=== PATIENT | female | born 1985 | race Caucasian/White ===

== ENCOUNTER 2020-08-09 08:15 | Emergency (ER) | payer OTHER, SELFPAY ==
--- NOTE | ~2020-08-09 | XR_ITS ---
EXAMINATION: XR chest 2V DATE: 08/09/2020 08:36 INDICATION: Chest pain TECHNIQUE: PA and lateral views of the chest are obtained. COMPARISON: 04/07/2019 FINDINGS: The lungs are free of acute opacities. There is no pleural effusion or pneumothorax. The ca rdiomediastinal silhouette is normal. There is mild thoracic spondylosis. IMPRESSION: 1. No acute cardiopulmonary abnormality. Reviewed, dictated and finalized at location B.
[2020-08-09 08:20] VITALS: BP 130/90; PULSE 68; RESP 17; TEMP 36.5; O2SAT 100
--- NOTE | 2020-08-09 08:20 | ECG_ITS ---
Measurements Intervals [place] Rate: 61 P: 65 DC: 141 QRS: 36 QRSD: 84 T: 49 QT: 370 QTc: 373 Interpretive Statements SINUS RHYTHM MINIMAL Q WAVES- HIGH LATERAL LEADS BASELINE ARTIFACT- I, II, III, AVR, AVL, AVF, V1-V6 BORDERLINE ECG Electronically Signed On 08-09-2020 8:30:04 CDT by Liborio Bolaños D.O.
[2020-08-09 08:24] VITALS: PULSE 70
--- NOTE | 2020-08-09 08:28 | ED.GENADULT ---
HPI - General Adult General Chief complaint: Chest Pain Stated complaint: chest pain Time Seen by Provider: 08/09/20 08:20 Source: RN notes reviewed History of Present Illness HPI narrative: Patient presents to emergency department from home for chest pain. Patient states symptoms began approximately 30 minutes prior to arrival is located in the midsternal chest with radiation up into the jaw. Described as burning in nature. States that the pain is currently resolved she does report associated shortness of breath when she had the pain she denies any fevers or chills abdominal pain nausea or vomiting. Does report 4 episodes of diarrhea today states she took no previous medications for the symptoms Related Data Home Medications Medication Instructions Recorded Confirmed albuterol sulfate INHALATION 04/07/19 levothyroxine 04/07/19 Allergies Allergy/AdvReac Type Severity Reaction Status Date / Time No Known Allergies Allergy Verified 08/09/20 08:57 Review of Systems Review of Systems: Narrative: Gen.: Denies fevers or chills ENT: Denies congestion Respiratory: Reports shortness of breath with chest pain CV: See HPI GI: Denies abdominal pain nausea, emesis reports diarrhea Musculoskeletal: Denies back pain or muscle pain Neuro: Denies numbness, tingling, weakness or focal weakness Skin: Denies rash Except as documented, all other systems reviewed and negative [facility] Past Medical History Medical History Asthma Bronchitis Closed right ankle fracture GERD (gastroesophageal reflux disease) Gestational diabetes Pneumonia Right carpal tunnel syndrome Surgical History Surgical History (Updated 04/07/19 @ 15:25 by Dahlia Simpson) H/O section H/O tubal ligation History of carpal tunnel surgery of right wrist Family History Family History (Updated 07/02/12 @ 13:29 by DOCTOR UNKNOWN) Other Diabetes mellitus Family history of cardiovascular disease Family history of glaucoma Social History Social History Smoking status: Current every day smoker Alcohol intake: never Exam Narrative: Exam Narrative: APPEARANCE: No acute distress, nontoxic, resting in bed EYES: EOMI HEENT: Normocephalic, atraumatic, OMM RESPIRATORY: No respiratory distress Clear to auscultation bilaterally with no rhonchi wheezing or rales. CARDIOVASCULAR: Regular rate and rhythm without murmurs rubs or gallops. ABDOMINAL: Soft, nontender, nondistended, no rebound or guarding MUSCULOSKELETAl: Moves all extremities. No clubbing, cyanosis or edema. NEURO: Awake and alert. Following commands, speech normal, no focal deficits SKIN:: Warm, dry. No rashes lesions or abrasions PSYCHIATRIC: Normal affect/mood, Course Course Emergency Course: Patient meets PERC rule criteria and no further testing needs to be performed for pulmonary embolism. Patient with no episodes of chest pain in the emergency department Called and discussed with Dr. Godoy For cardiology presentation work-up at this time feels patient may be discharged after 2 - troponins with follow-up in the office Discussed with patient results of workup and diagnosis. Discussed need for follow-up with primary care, proper use of medication, and reasons to return to the emergency department. Patient understands and agrees to current treatment plan Vital Signs Vital signs: Vital Signs Temperature 97.7 F 08/09/20 08:20 Pulse Rate 68 08/09/20 08:20 Respiratory Rate 17 08/09/20 08:20 Blood Pressure 130/90 08/09/20 08:20 Pulse Oximetry 100 08/09/20 08:20 Temperature 97.7 F 08/09/20 08:20 Pulse Rate 66 08/09/20 09:48 Respiratory Rate 22 H 08/09/20 09:48 Blood Pressure 103/68 08/09/20 09:48 Pulse Oximetry 99 08/09/20 09:48 Medical Decision Making MDM Narrative Medical decision making narrative: Patient's EKGs and l
--- NOTE | 2020-08-09 08:31 | PC.NURSE ---
Pt to XY via stretcher at this time.
[2020-08-09 08:37] LABS: Basophils Percent Auto 0.3 % (0.2-1.2); Eosinophils Absolute Auto 0.2 K/mm3 (0-0.3); Eosinophils Percent Auto 2.2 % (0-4.4); Hematocrit 38.3 % (37.0-47.0); Hemoglobin 12.6 g/dL (12.0-15.0); Immature Granulocyte Absolute 0.01 K/mm3 (0.00-0.031); Immature Granulocyte Percent A 0.1 % (0-0.5); Lymphocytes Absolute Auto 1.73 K/mm3 (0.9-3.2); Lymphocytes Percent Auto 23.8 % (18.3-44.2); Mean Corpuscular HGB Conc 32.9 g/dl (32-36); Mean Corpuscular Hemoglobin 28.8 pg (26-34); Mean Corpuscular Volume 87.4 fl (80-100); Mean Platelet Volume 10.5 fl (7.4-10.4); Monocytes Absolute Auto 0.5 K/mm3 (0.1-0.6); Neutrophils Absolute Auto 4.8 K/mm3 (1.3-6.7); Neutrophils Percent Auto 66.6 % (45.5-73.1); Platelet Count Result 235 k/mm3 (150-375); Red Blood Count 4.38 M/mm3 (4.2-5.4); Red Cell Distribution Width 13.6 % (11.5-14.5); White Blood Count 7.3 K/mm3 (4.5-10.0)
[2020-08-09 08:47] LABS: Anion Gap 6 mmol/L (8-16); Blood Urea Nitrogen 20 mg/dL (7-17); Calcium 8.8 mg/dL (8.4-10.2); Carbon Dioxide 23 mmol/L (22-30); Chloride 108 mmol/L (98-107); Estimated Glomerular Filt Rate > 60; Glucose 111 mg/dL (65-105); INR 0.8; Potassium 4.1 mmol/L (3.4-5.0); Prothrombin Time 12.1 Seconds (11.1-14.7); Sodium 137 mmol/L (137-145)
[2020-08-09 08:48] LABS: Partial Thromboplastin Time 24.8 SECONDS (22.3-36.8)
[2020-08-09 08:50] LABS: Alanine Aminotransferase 15 U/L (4-35); Albumin Level 4.2 g/dL (3.5-5.1); Alkaline Phosphatase 80 U/L (38-126); Aspartate Amino Transferase 27 U/L (14-36); Bilirubin,Total < 0.1 mg/dL (0.2-1.3); Lipase 152 U/L (23-300)
[2020-08-09 08:58] LABS: Add Urine Microscopic? NO; Appearance Urine Clear (Clear); Bilirubin Urine Negative (Negative); Blood Urine Negative (Negative); Color Urine Yellow (Yellow); Glucose Urine UA Negative (Negative); Ketones Urine Negative (Negative); Leukocyte Esterase Ur Negative LEU/UL (Negative); Nitrate Urine Negative (Negative); Protein Urine Negative (Negative); Specific Grav Ur 1.026 (1.001-1.035); Urobilinogen Urine Negative mg/dL (<2.0)
[2020-08-09] MEDS: ASPIRIN 81 MG CHEWABLE TABLET 324 MG PO (08:58)
[2020-08-09 08:59] LABS: Troponin I < 0.012 ng/mL (0.000-0.034)
[2020-08-09 09:48] VITALS: BP 103/68; PULSE 66; RESP 22; O2SAT 99
[2020-08-09 12:22] LABS: Troponin I < 0.012 ng/mL (0.000-0.034)
[2020-08-09 12:48] VITALS: BP 106/68; PULSE 67; RESP 15; O2SAT 99
== END 2020-08-09 12:49 | disposition home or self-care (01) ==
PROVIDERS: Emergency Provider Emergency Medicine; PCP Internal Medicine Endocrinology, Diabetes & Metabolism
DX: R07.89 Other chest pain (principal); J45.909 Unspecified asthma, uncomplicated; K21.9 Gastro-esophageal reflux disease without esophagitis
CPT/HCPCS: 36415; 71046; 80048; 80076; 81003; 81025; 83690; 84484; 85025; 85610; 85730; 93005; 99284; A9270

== ENCOUNTER 2022-02-11 11:29 | Emergency (ER) | payer OTHER, SELFPAY ==
--- NOTE | ~2022-02-11 | XR_ITS ---
EXAMINATION: XR chest 2V DATE: 02/11/2022 12:33 INDICATION: 3 weeks of cough TECHNIQUE: PA and lateral views of the chest were obtained. COMPARISON: Chest radiograph dated 08/09/2020 FINDINGS: The lungs remain clear with no focal airspace opacities, pulmonary edema, pleural effusion or pneumot horax. The cardiomediastinal silhouette is normal. Mild thoracic spondylosis. IMPRESSION: 1. No acute cardiopulmonary disease. Reviewed, dictated and finalized at location A.
[2022-02-11 11:42] VITALS: BP 108/79; PULSE 80; RESP 18; TEMP 36.4; O2SAT 100
--- NOTE | 2022-02-11 12:15 | ED.URI ---
HPI - URI/Sore Throat General Chief Complaint: Upper Respiratory Infection Stated Complaint: Coughing, Chest Pain Time Seen by Provider: 02/11/22 12:15 Source: patient, RN notes reviewed and old records reviewed Mode of arrival: ambulatory Limitations: no limitations History of Present Illness HPI Narrative: 36-year-old female presents to the [facility] with complaints of a cough Started as fever, body aches, cough for 2 weeks ago. Reports negative COVID test, taking Claritin. MD elicited complaint: cough Related Data Home Medications Medication Instructions Recorded Confirmed levothyroxine 25 mcg tablet 25 mcg PO DAILY 02/11/22 02/11/22 Allergies Allergy/AdvReac Type Severity Reaction Status Date / Time No Known Allergies Allergy Verified 02/11/22 11:38 Review of Systems Review of Systems: All systems reviewed & are unremarkable except as noted in HPI and below Constitutional: Constitutional: Reports no additional constitutional complaints, Denies chills and Denies fever(s) Eyes: Eyes: Reports no additional eye complaints ENT: Reports as per HPI and Reports nasal congestion Cardiovascular: Cardiovascular: Reports no additional cardiovascular complaints Respiratory: Respiratory: Reports as per HPI, Reports cough and Reports wheezing Gastrointestinal: Gastrointestinal: Reports no additional gastrointestinal complaints Musculoskeletal: Musculoskeletal: Reports no additional musculoskeletal complaints Integumentary/Breasts: Skin/Breast: Reports system reviewed and no additional complaints, except as docu Neurologic: Reports system reviewed and no additional complaints, except as documented Psychiatric: Psychiatric: Reports no additional psychiatric complaints Allergic/Immunologic: Allergic/Immunologic: Reports no additional allergic/immunologic complaints PMFSH Past Medical History Medical History Asthma Bronchitis Closed right ankle fracture GERD (gastroesophageal reflux disease) Gestational diabetes Pneumonia Right carpal tunnel syndrome Surgical History Surgical History H/O section H/O tubal ligation History of carpal tunnel surgery of right wrist Family History Family History Other Diabetes mellitus Family history of cardiovascular disease Family history of glaucoma Social History Social History Smoking status: Current every day smoker Alcohol intake: never Comments At the time of my signature, I reviewed and agree with the nursing past medical, surgical, social, and family history. There is no relevant family history pertinent to the patient complaint. Exam Const: General: healthy appearing, no acute distress, alert and well nourished Nutritional Appearance: well nourished Orientation/consciousness: patient oriented x3 Limitations: no limitations HENMT: Head: normal to inspection Ears: external ears normal, TM's normal bilaterally and EAC's normal Face/Nose/Sinus: Normal external nose present Face and sinus: normal facial exam Mouth: Yes Normal oral and palatal mucosa present, Yes lip normal and Yes moist mucous membranes Throat: posterior oropharynx normal and uvula midline Eyes: General: appearance normal, both eyes and all related structures Conjunctivae: conjunctivae normal Pupils: Equal, round and reactive pupils present Neck: Neck: normal visual inspection, no lymphadenopathy and no meningeal signs Chest: Chest palpation & inspection: normal inspection of the chest Resp: Effort & Inspection: normal respiratory effort and no use of accessory muscles Auscultation: clear to auscultation bilaterally, no crackles, no rales, no rhonchi and wheezes expiratory wheezes, inspiratory wheezes and throughout Cardio: Rate: regular rate Rhythm
[2022-02-11] MEDS: ALBUTEROL SULFATE NEB 2.5 MG/3 ML INH INHALATION (12:36)
[2022-02-11] MEDS: IPRATROPIUM BR 0.02% INH SOLN 0.5 MG/2.5 ML VIAL INHALATION (12:37)
== END 2022-02-11 13:26 | disposition home or self-care (01) ==
PROVIDERS: Emergency Provider Nurse Practitioner
DX: J40 Bronchitis, not specified as acute or chronic (principal); F17.200 Nicotine dependence, unspecified, uncomplicated; J45.909 Unspecified asthma, uncomplicated; K21.9 Gastro-esophageal reflux disease without esophagitis
CPT/HCPCS: 71046; 94640; 99213; G0463

== ENCOUNTER 2022-07-06 08:37 | Emergency (ER) | payer OTHER, SELFPAY ==
[2022-07-06 08:58] VITALS: BP 111/73; PULSE 69; RESP 16; TEMP 36.5; O2SAT 99
--- NOTE | 2022-07-06 09:36 | ED.DENTAL ---
HPI - Dental/Oral General Chief complaint: Dental/Oral Stated complaint: tooth pain Time Seen by Provider: 07/06/22 09:36 Source: patient Mode of arrival: ambulatory Limitations: no limitations History of Present Illness HPI Narrative: 36-year-old female presents with complaint of right-sided lower dental pain for 2-3 days. Reports that she has decaying teeth and has been told that she needs dentures. Was scheduled to have lower tooth removed a month ago but states she did not have the money for it. Afebrile. Is requesting antibiotics. All systems reviewed and negative except as noted above. Related Data Home Medications Medication Instructions Recorded Confirmed levothyroxine 25 mcg tablet 25 mcg PO DAILY 02/11/22 07/06/22 montelukast 10 mg tablet 10 mg PO DAILY 07/06/22 07/06/22 Allergies Allergy/AdvReac Type Severity Reaction Status Date / Time No Known Allergies Allergy Verified 07/06/22 09:37 Review of Systems Review of Systems: CONSTITUTIONAL: Denies fever, chills, or sweats. EYES: Denies visual changes, redness, or discharge. ENT: Denies rhinorrhea, congestion, sore throat, or otalgia. Reports dental pain. CARDIOVASCULAR: Denies chest pain, palpitations, or edema. RESPIRATORY: Denies cough or dyspnea. GASTROINTESTINAL: Denies abdominal pain, nausea, vomiting, or diarrhea. GENITOURINARY: Denies dysuria or hematuria. SKIN: Denies rash or itching. MUSCULOSKELETAL: Denies back pain, joint pain, or myalgia. NEUROLOGIC: Denies headache, numbness, or weakness. PSYCHIATRIC: Denies anxiety or depression. All other systems reviewed are negative, except as documented in HPI. [facility] Past Medical History Medical History Asthma Bronchitis Closed right ankle fracture GERD (gastroesophageal reflux disease) Gestational diabetes Pneumonia Right carpal tunnel syndrome Surgical History Surgical History H/O section H/O tubal ligation History of carpal tunnel surgery of right wrist Family History Family History Other Diabetes mellitus Family history of cardiovascular disease Family history of glaucoma Social History Social History Smoking status: Current every day smoker Alcohol intake: never Comments At time of signature, agree with nursing past medical, surgical, social and family history. There is no relevant family history pertinent to the presenting complaint. Exam Narrative: GENERAL: This is a well-nourished, well-developed patient, in no apparent distress. HEAD: normocephalic, atraumatic. EYES: PERRL. Sclera clear/white. Vision is grossly intact. EARS: External ears normal NOSE: External nose normal MOUTH: tooth #31 broken down to gumline. erythematous and swollen. no drainage. no fluctuance concerning for abscess. NECK: Neck supple, non-tender without lymphadenopathy, masses or thyromegaly. CARDIOVASCULAR: Regular rate and rhythm without murmurs, gallops, or rubs. RESPIRATORY: Clear to auscultation. Breath sounds equal bilaterally. No wheezes, rales, or rhonchi. SKIN: warm, Dry, intact with no suspicious lesions or rash, good texture and turgor. NEURO: awake, alert, and oriented to person, place and time. There were no obvious focal neurologic abnormalities. EXTREMITIES: No joint tenderness, effusion, or edema noted. Course Course Level of Care: Express Care Visit Vital Signs Vital signs: Vital Signs Temperature 36.5 C 07/06/22 08:58 Pulse Rate 69 07/06/22 08:58 Respiratory Rate 16 07/06/22 08:58 Blood Pressure 111/73 07/06/22 08:58 Pulse Oximetry 99 07/06/22 08:58 Oxygen Delivery Room Air 07/06/22 08:58 Temperature 36.5 C 07/06/22 08:58 Pulse Rate 69 07/06/22 08:58 Respiratory Rate 16 07/06/22 08:58 Blood P
== END 2022-07-06 09:54 | disposition home or self-care (01) ==
PROVIDERS: Emergency Provider Nurse Practitioner Family
DX: K08.89 Other specified disorders of teeth and supporting structures (principal); F17.200 Nicotine dependence, unspecified, uncomplicated; J45.909 Unspecified asthma, uncomplicated; K21.9 Gastro-esophageal reflux disease without esophagitis
CPT/HCPCS: 99213; G0463

== ENCOUNTER 2023-04-18 09:08 | Emergency (ER) | payer OTHER, SELFPAY ==
[2023-04-18 09:25] VITALS: BP 114/83; PULSE 89; RESP 16; TEMP 36.8; O2SAT 100
--- NOTE | 2023-04-18 09:54 | ED.URI ---
HPI - URI/Sore Throat General Chief Complaint: Upper Respiratory Infection Stated Complaint: Sore Throat Time Seen by Provider: 04/18/23 09:46 Source: patient and RN notes reviewed Mode of arrival: ambulatory Limitations: no limitations History of Present Illness HPI Narrative: Patient presents today with a 4 day history of sore throat and a 2 day history of ear muffling, headache and nasal congestion. Currently rates her pain 5/10 and has tried no medication for symptoms prior to arrival. Denies cough or shortness of breath. Patient states there are several people at her work that have strep and RSV. Patient works at a [employer]. Related Data Home Medications Medication Instructions Recorded Confirmed levothyroxine 150 mcg capsule 150 mcg PO DAILY 04/18/23 04/18/23 (Tirosint) Allergies Allergy/AdvReac Type Severity Reaction Status Date / Time No Known Allergies Allergy Verified 07/06/22 09:37 Review of Systems Review of Systems: CONSTITUTIONAL: Denies body aches, fever, chills, or sweats. EYES: Denies visual changes, redness, or discharge. ENT: Denies rhinorrhea. + ear muffling, sore throat, congestion CARDIOVASCULAR: Denies chest pain, palpitations, or edema. RESPIRATORY: Denies cough or dyspnea. GASTROINTESTINAL: Denies abdominal pain, nausea, vomiting, or diarrhea. GENITOURINARY: Denies dysuria or hematuria. SKIN: Denies rash, itching, or wounds. MUSCULOSKELETAL: Denies back pain, joint pain, or myalgia. NEUROLOGIC: Denies numbness, tingling, or weakness.+ headache PSYCH: Denies depression or anxiety. PMFSH Past Medical History Medical History Asthma Bronchitis Closed right ankle fracture GERD (gastroesophageal reflux disease) Gestational diabetes Pneumonia Right carpal tunnel syndrome Surgical History Surgical History H/O section H/O tubal ligation History of carpal tunnel surgery of right wrist Family History Family History Other Diabetes mellitus Family history of cardiovascular disease Family history of glaucoma Social History Social History Smoking status: Current every day smoker Alcohol intake: never Comments At time of signature, I have reviewed and agree with nursing past medical, surgical, social and family history unless otherwise noted. Please see nursing chart for further information. There is no relevant family history pertinent to the presenting complaint Exam Narrative: GENERAL: Well-appearing, well-nourished, and in no acute distress. HEAD: Normocephalic, atraumatic. EYES: EOMI. No redness or drainage. Conjunctivae normal. ENT: Mucous membranes pink and moist. Nares mildly congested. No rhinorrhea. Mild right serous effusion. Left TM normal. Throat normal. Uvula midline. NECK: Normal AROM. Supple. No lymphadenopathy. CHEST: No respiratory distress. Clear to auscultation. HEART: Regular rate and rhythm. No murmur appreciated. EXTREMITIES: Normal range of motion. No edema. SKIN: Warm, dry, no rash. Capillary refill normal. Normal skin turgor. NEURO: No focal deficits. Alert and oriented x3. Gait steady. PSYCH: Normal affect. No signs of depression or anxiety. Course Course Level of Care: Express Care Visit Vital Signs Vital signs: Vital Signs Temperature 98.2 F 04/18/23 09:25 Pulse Rate 89 04/18/23 09:25 Respiratory Rate 16 04/18/23 09:25 Blood Pressure 114/83 04/18/23 09:25 Pulse Oximetry 100 04/18/23 09:25 Oxygen Delivery Room Air 04/18/23 09:25 Temperature 98.2 F 04/18/23 09:25 Pulse Rate 89 04/18/23 09:25 Respiratory Rate 16 04/18/23 09:25 Blood Pressure 114/83 04/18/23 09:25 Pulse Oximetry 100 04/18/23 09:25 Oxygen Delivery Room A
== END 2023-04-18 10:05 | disposition home or self-care (01) ==
PROVIDERS: Emergency Provider Nurse Practitioner; PCP Nurse Practitioner Family
DX: J06.9 Acute upper respiratory infection, unspecified (principal); F17.200 Nicotine dependence, unspecified, uncomplicated
CPT/HCPCS: 87081; 87880; 99213; G0463